=== PATIENT | male | born 1940 | race Caucasian/White ===

== ENCOUNTER → 2016-08-27 | Day surgery (SDC) | payer OTHER, MEDICARE ==
[~2016-08-27] VITALS: Ht 182.9 cm; Wt 83.0 kg
[~2016-08-27] MED LIST: ASPIRIN EC81 M1 PO; CRESTOR10 M1 PO
--- NOTE | 2016-08-27 09:27 | Operative Report ---
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 As changing lesion right cheek. She accepts excision with skin grafting the right shoulder knowing positive margins might require additional surgery and risk of infection bleeding pain and deformity was excepted informed consent was signed. Operative placed supine on the table intravenous antibiotics was given. Venodyne boots are placed and then laryngeal mask anesthesia was established. The right cheek right shoulder and right thigh were prepped and draped in usual sterile fashion. Full-thickness excision around the tumor for the lesions described above was carried down through the fascia. Skin graft was harvested for the dimensions described above via the right thigh and placed in the wound bed fixed at the periphery with sutures and a wound VAC for the dimensions described above. Shave biopsy was done of the right cheek.
== END ==
LOC: STS 01:06
DX: C44.622 Squamous cell carcinoma of skin of right upper limb, including shoulder (principal); L82.1 Other seborrheic keratosis; E78.00 Pure hypercholesterolemia, unspecified; Z85.828 Personal history of other malignant neoplasm of skin; Z87.891 Personal history of nicotine dependence
CPT/HCPCS: 88305; J0690; J2250